=== PATIENT | male | born 1960 | race Caucasian/White ===

== ENCOUNTER 2024-08-27 07:59 | Inpatient (IN) ==
--- NOTE | 2024-07-18 13:31 | PAT Medication Instructions ---
Medication Instructions Date of Service July 18, 2024 Home Medications aspirin 81 mg capsule 81 mg PO DAILY atorvastatin 80 mg tablet 80 mg PO QAM multivitamin 1 tab PO QAM ASK your prescriber and surgeon aspirin 81 mg capsule 81 mg PO DAILY DO NOT take the morning of surgery multivitamin 1 tab PO QAM Take morning of surgery With a small sip of water, OTHERWISE NOTHING TO EAT OR DRINK AFTER MIDNIGHT: atorvastatin 80 mg tablet 80 mg PO QAM Other Notes If you have any questions please call us at [phone] or [phone] or [phone] or [phone]
--- NOTE | 2024-07-29 11:53 | Anesthesiology Consultation ---
Date of Service July 29, 2024 Assessment & Plan (1) Encounter for pre-operative examination: Chart Review Chart Review: Patient seen in Pre Admission Testing Teaching & Discussion Pre-Anesthesia Teaching/Discussion Notes: Instructed NPO after midnight before surgery, except medications with 15 cc of water. Medication instructions provided according to the PAT guidelines. History Surgery Operation Date: 08/15/24 12:55 Proposed Procedures p L4-L5 , L5-S1 Decompression and Fusion Spinal Cord Monitoring - Larry Jerez DO Height/Weight Height: 5 ft 11 in Weight: 96.162 kg Allergies Allergy/AdvReac Type Severity Reaction Status Date / Time No Known Allergies Allergy Verified 07/16/24 07:33 Medications Home Medications Medication Instructions Recorded Confirmed Last Taken aspirin 81 mg capsule 81 mg PO DAILY 07/16/24 07/16/24 Unknown atorvastatin 80 mg tablet 80 mg PO QAM 07/16/24 07/16/24 Unknown multivitamin 1 tab PO QAM 07/16/24 07/16/24 Unknown Past Medical History Medical History (Updated 07/29/24 @ 11:52 by Diya Baltazar PA-C) Dyslipidemia 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 Past Family History Family History Other No family history of adverse response to anesthesia Past Surgical History Surgical History History of ear surgery bilateral mastoid suregry - at 7 yrs ago History of open reduction and internal fixation (ORIF) procedure right leg History of removal of retained hardware History of surgery on wrist History of tooth extraction Hx of appendectomy Hx of cholecystectomy Hx of colonoscopy S/P epidural steroid injection lumbar area- pain mangement [place] (~03/2024) Social History Smoking Status: Former smoker Do You Dip or Chew Tobacco: No Smoking End Date: quit 2 weeks ago Hx Alcohol Use: No Hx Substance Use: No substance use type: does not use Review of Systems Patient denies chest pain, shortness of breath, dyspnea on exertion, snoring, witnessed apneas, reflux, fever, chills, cough, wheezing, or palpitations. Physical Exam Vital Signs Vitals BP P TEMP SP02 % on RA RESP Physical Patient resting comfortably in chair in no acute distress, alert and oriented, responding appropriately throughout visit Full cervical extension range of motion without pain TMD __ finger breadths Mallampati Score ___ Dentition: intact, denies chipped or loose teeth, caps/crowns, implants or bridges Lungs: normal respiratory effort. Good air movement, clear throughout to auscultation, no adventitious breath sounds Cardiac: regular rate and rhythm, no murmurs noted Carotid arteries: negative bruit bilat
--- NOTE | 2024-07-29 12:47 | Anesthesiology Consultation ---
Date of Service July 29, 2024 Assessment & Plan (1) Encounter for pre-operative examination: - Infectious disease screening: Per assessment on 07/29/24- No known recent infectious disease contacts or current infectious disease symptoms. - Cardiology visit (03/07/24): "Syncope X1 episode, possible prior CVA with chronic small vessel disease in the brain.. Normal CardioNet with only 5-second episodes of SVT that were asymptomatic.. Negative ischemic workup.. clinical ASCVD, possible prior CVA with chronic small vessel disease in the brain.. Recheck lipids due now.. Return in about 1 year" - Pending: * Awaiting surgeon-ordered PCP preop evaluation ([facility], appt week of 08/05). * Preop EKG: Preop EKG done 07/29/24 notes TWA, consider inferior ischemia. Have not been able to obtain comparison tracings at this point (received 08/2023 written EKG report). Note written to cardiology regarding preop EKG- Awaiting response ([facility] cardiology). Chart Review Chart Review: Patient seen in Pre Admission Testing Teaching & Discussion Pre-Anesthesia Teaching/Discussion Notes: Instructed NPO after midnight before surgery,except medications with 15 cc of water. Medication instructions provided according to the PAT guidelines. History Surgery Operation Date: 08/15/24 12:55 Proposed Procedures p L4-L5 , L5-S1 Decompression and Fusion Spinal Cord Monitoring - Larry Jerez, Height/Weight Height: 5 ft 11 in Weight: 96.162 kg Allergies Allergy/AdvReac Type Severity Reaction Status Date / Time No Known Allergies Allergy Verified 07/16/24 07:33 Medications Home Medications Medication Instructions Recorded Confirmed Last Taken aspirin 81 mg capsule 81 mg PO DAILY 07/16/24 07/16/24 Unknown atorvastatin 80 mg tablet 80 mg PO QAM 07/16/24 07/16/24 Unknown multivitamin 1 tab PO QAM 07/16/24 07/16/24 Unknown Past Medical History Medical History Dyslipidemia History of blood clot in brain After mastoid surgery (age 7), no issues since History of chronic hypertension History of CVA (cerebrovascular accident) Possible prior CVA with chronic small vessel disease 07/2023, no residual issues Lumbar back pain Exercise / Class Metabolic Activity II 4-5 Yardwork/Stairs/Walk up hill Past Family History Family History Other No family history of adverse response to anesthesia Past Surgical History Surgical History History of ear surgery Bilateral mastoid suregry (age 7) History of open reduction and internal fixation (ORIF) procedure RLE History of removal of retained hardware History of surgery on wrist History of tooth extraction Hx of appendectomy Hx of cholecystectomy Hx of colonoscopy S/P epidural steroid injection Lumbar area- pain mangement [place] (~03/2024) Past Anesthesia History No Hx of Anesthesia Complications and No Family Hx of Anesthesia Complications History of PONV No Hx of PONV Social History Smoking Status: Former smoker Do You Dip or Chew Tobacco: No Smoking End Date: Quit 06/2025 Hx Alcohol Use: No Hx Substance Use: No substance use type: does not use Review of Systems Patient denies chest pain, shortness of breath, dyspnea on exertion, fever, chills, cough, wheezing. Physical Exam Vital Signs BP 138/87 P 77 TEMP 97.5 SP02 96%RA RESP 16 Physical Full cervical extension range of motion. Full TMJ range of motion. TMD 3 finger breaths Mallampati Score III, macroglossia Dentition: upper full denture, edentulous Lungs: clear throughout to auscultation Cardiac: regular rate and rhythm, no murmurs noted Spine: normal Carotid arteries: negative bruit Extremities: no LE edema Lab Results Anesthesia Preop Results Results Anesthesia Widget: WBC 7.66 K/ul (4.8-10.8) 07/29/24 Hgb 14.6 g/dl (14.0-18.0) 07/29/24 Hct 42.8 % (42.0-52.0) 07/29/24 Plt 280 K/uL (130-400) 07/29/24 Na 140 mmol/L (136-145) 07/29/24 K 3.8 mmol/L (3.5-5.1) 07/29/24 Cl 107 mmol/L (98-107) 07/29/24 CO2 26 mmol/L (21-32) 07/29/24 BUN 17 mg/dl (6-23) 07/29/24 Creat 1.00 mg/dl (0.6-1.4) 07/29/24 Glucose Level 102 mg/dl (70-99(Fasting)) H 07/29/24 PT 11.1 Seconds (9.0-12.0) 07/29/24 PTT 26 Seconds (21-31) 07/29/24 INR 1.0 (0.9-1.1) 07/29/24 Urine Color Yellow 07/29/24 Urine Appearance Clear (Clear) 07/29/24 Urine pH 5.0 (4.5-7.5) 07/29/24 Urine Specific [place] 1.024 (1.000-1.030) 07/29/24 Urine Protein Negative (Negative) 07/29/24 Urine Glucose (UA) Negative (Negative) 07/29/24 Urine Ketones Trace (Negative) H 07/29/24 Urine Blood Negative (Negative) 07/29/24 Urine Nitrite Negative (Negative) 07/29/24 Urine Bilirubin Negative (Negative) 07/29/24 Urine Urobilinogen Negative (Negative) 07/29/24 Urine Leukocyte Esterase Negative (Negative) 07/29/24 Blood Type A Positive 07/29/24 Antibody Screen NEGATIVE 07/29/24 Testing Electrocardiogram Date: 07/29/24 NSR at 80bpm. TWA, consider inferior ischemia. Chest X-Ray Date: 07/29/24 Findings: + NAD Echocardiogram Date: 08/22/23 EF 60-65%. Grade 1 diastolic dysfunction. Trace MR/TR. Stress Test Date: 08/22/23 Negative ECG response. LVEF 54%. Low probability of CAD/ischemia. No significant ischemia or infarction. "There is an apparent perfusion defect of the inferior wall, consistent with diaphragmatic attenuation artifact. This is a normal regadenoson SPECT myocardial perfusion study indicating that the probability of hemodynamically significant underlying coronary artery disease being present is low" Stress test findings noted in 03/07/24 cardiology office visit note scanned into chart. Multiple attempts to obtain official report unsuccessful.
[~2024-08-27 07:59] MED LIST: ACETAMINOPHEN 500 MG TAB PO SCH; CeleBREX 200 MG CAP PO SCH; GABAPENTIN 600 MG DOSE PO SCH; LACTATED RINGER'S 1,000 ML IV SCH; LR 60ML/HR IV SCH; ceFAZolin 2000MG 2,000 MG/15 ML SYR IV SCH
[2024-08-27] MEDS ORDERED: ONDANSETRON INJ 2 MG/ML 2 ML VIAL ONE (08:24)
[2024-08-27] MEDS ORDERED: fentaNYL citrate PF 100 MCG/2 ML VIAL ONE (08:24)
[2024-08-27] MEDS ORDERED: ROCURONIUM BROMIDE 10 MG/ML 5 ML VIAL IV ONE (08:24)
[2024-08-27] MEDS ORDERED: GLYCOPYRROLATE 0.2 MG/ML VIAL ONE (08:24)
[2024-08-27] MEDS ORDERED: LIDOCAINE 2% 2 ML VIAL/AMP(20MG/ML) INFIL ONE (08:24)
[2024-08-27] MEDS ORDERED: PROPOFOL IV EMULSION 10 MG/ML 20 ML VIAL IV ONE (08:24)
[2024-08-27] MEDS ORDERED: MIDAZOLAM HCL 1 MG/ML 2ML VIAL ONE (08:24)
[2024-08-27] MEDS ORDERED: DEXAMETHASONE SOD INJ 4 MG/ML VIAL ONE (08:24)
[2024-08-27] MEDS ORDERED: SUGAMMADEX SODIUM 200 MG/2 ML VIAL IV ONE (09:00)
[2024-08-27] MEDS: LACTATED RINGER'S 1,000 ML IV SCH ×2 (09:10→17:45)
[2024-08-27] MEDS: LR 60ML/HR IV SCH (09:10)
[2024-08-27] MEDS: ACETAMINOPHEN 500 MG TAB PO SCH (09:12)
[2024-08-27] MEDS: GABAPENTIN 600 MG DOSE PO SCH (09:12)
[2024-08-27] MEDS: CeleBREX 200 MG CAP PO SCH (09:12)
[2024-08-27] MEDS ORDERED: ATROPINE SULFATE 0.1 MG/ML 10ML SYR IV PRN (09:21)
[2024-08-27] MEDS ORDERED: PROMETHAZINE HCL 6.25 MG in SODIUM CHLORIDE 0.9% 50 ML IV PRN (09:21)
[2024-08-27] MEDS ORDERED: LABETALOL HCL IV 5 MG/ML 20ML IV PRN (09:21)
[2024-08-27] MEDS ORDERED: ONDANSETRON INJ 2 MG/ML 2 ML VIAL IV PRN (09:21)
--- NOTE | 2024-08-27 09:43 | History & Physical Bridge Note ---
Date of Service August 27, 2024 History & Physical Bridge Note I have examined the patient, reviewed the History & Physical and in the interval since the performance of the History & Physical I have noted the following changes of clinical significance: no changes noted
--- NOTE | 2024-08-27 09:45 | History & Physical Report ---
Date of Service August 27, 2024 Assessment & Plan (1) Two-level lumbosacral spondylosis with radiculopathy: Plan: L4-L5 L5-S1 decompression and fusion History of Present Illness Chief Complaint: Back and bilateral leg pain Primary Care Provider: Kimberlyn Duke NP This is a 64-year-old male presents for chronic persistent back and leg pain the failing course of nonoperative care is here for surgical invention. Allergies Allergy/AdvReac Type Severity Reaction Status Date / Time No Known Allergies Allergy Verified 08/27/24 08:44 Home Medications Medication Instructions Recorded Confirmed Type aspirin 81 mg capsule 81 mg PO DAILY 07/16/24 08/27/24 History atorvastatin 80 mg tablet 80 mg PO QAM 07/16/24 08/27/24 History multivitamin 1 tab PO QAM 07/16/24 08/27/24 History Past Med/Surg History Problem List (Updated 08/27/24 @ 09:45 by Larry Jerez DO) Two-level lumbosacral spondylosis with radiculopathy Encounter for pre-operative examination Medical History Dyslipidemia History of blood clot in brain After mastoid surgery (age 7), no issues since History of chronic hypertension History of CVA (cerebrovascular accident) Possible prior CVA with chronic small vessel disease 07/2023, no residual issues Lumbar back pain Surgical History History of ear surgery Bilateral mastoid suregry (age 7) History of open reduction and internal fixation (ORIF) procedure RLE History of removal of retained hardware History of surgery on wrist History of tooth extraction Hx of appendectomy Hx of cholecystectomy Hx of colonoscopy S/P epidural steroid injection Lumbar area- pain mangement [place] (~03/2024) Family History Other No family history of adverse response to anesthesia Social History Smoking Status: Former smoker Tobacco Type: Cigarettes Smoking End Date: Quit 06/2025; Second Hand Exposure: No; Do You Dip or Chew Tobacco: No; Tobacco Cessation Education Requested by Patient: No Hx Alcohol Use: No Hx Substance Use: No Preferred Language: Malay Communication Ability: Effective Finnish Rubber Required: No Beliefs That Will Affect Care: None Current Living Situation: Spouse Other Information That Helps Us Care for You: No Feels Safe at Home: Yes Safety Concerns: Feels Safe At This Time Assistive Devices: Denture - Upper, Denture - Lower, Glasses and Hearing Aid - Bilateral Physical Exam Physical Exam: Patient is alert and oriented Heart regular rhythm Lungs clear Results & Data Results & Data Vital Signs (Past 12 Hours) Vital Signs Temp Pulse Resp BP Pulse Ox O2 Del Method 08/27/24 08:50 36.4 C L 89 18 154/88 H 97 Room Air
[2024-08-27] MEDS: ceFAZolin 2000MG 2,000 MG/15 ML SYR IV SCH ×2 (10:13→18:21)
[2024-08-27] MEDS: BUPIVACAINE/EPINEPHRINE 0.25% 1:200,000 30 ML VIAL ONE (11:03)
[2024-08-27] MEDS: ceFAZolin 330 MG/ML 1 GM VIAL ONE (11:03)
[2024-08-27] MEDS ORDERED: ePHEDrine sulfate 50 MG/5 ML SYR ONE (11:05)
[2024-08-27] MEDS ORDERED: PHENYLEPHRINE 100MCG/ML 5ML SYR ONE (11:05)
[2024-08-27] MEDS: FLOSEAL HEMOSTATIC MATRIX 10ML TOP ONE (12:08)
--- NOTE | 2024-08-27 12:13 | Operative Report ---
Post Operative Report Pre & Post Diagnosis Operation Date: 08/27/24 10:05 Pre-Op Diagnosis: #1 two-level Lumbosacral Spondylosis with Radiculopathy #2 lumbar discrimination with radiculopathy Post-Op Diagnosis: Same I identified the patient and participated in the time-out.: Yes Procedure Operation Date: 08/27/24 10:05 Actual Procedures #1 lumbar decompression with bilateral medial facetectomies and foraminotomies L3-L4, L4-5 and L5-S1. #2 posterior spinal fusion L4-S1. #3 placed posterior instrumentation L4-S1 using Story screws and rods. #4 interbody fusion L4-L5 L5-S1. #5 placement of Spira 12 x 26 mm x 2 at L4-5 and 10 x 26 mm x 2 at L5- S1. #6 placement locally harvested morselized autograft in the posterior lateral gutters. #7 placement infuse collagen sponge, with Koros in the posterior lateral gutters and os design and interbody space. #8 application of versa wrap of the exposed dura. Surgeon Larry Jerez, Dry End Tester Lian See Estimated Blood Loss 500 Findings Consistent with Post-Op Diagnosis Specimens None Indications This is a 64-year-old male presents with bumps diagnosis of failed course of nonoperative care is here for surgical invention. Description of Procedure Patient was met with identified informed consent obtained. Patient was then taken to the operative suite underwent intubation placed in a prone position on a Eric able [facility] frame. All bony prominences well-padded eyes inspected to ensure no external precipice upon the. This point lumbar spine is prepped and draped in normal sterile fashion. Sharp dissection with the assistance of Bovie cautery performed down to and exposing the lamina transverse processes of L4-5 and sacral ala bilaterally. From caudal to cephalad fashion complete laminectomy of L5 was performed including bilateral male facetectomies and foraminotomies addressing severe spinal stenosis. There is marked adhesions to the traversing nerve root secondary to disc herniation on the right at this level. same performed a complete laminectomy of L4 with bilateral medial facetectomies and foraminotomies addressing large disc herniation with adhesions on the left. This was followed by partial laminectomy of L3 with bilateral medial facetectomies to address subarticular stenosis. Pedicle screws were then placed in L4-L5 and S1 levels bilaterally with assistance of fluoroscopy in the process sandrine contoured and placed. By way of a transforaminal portion of right discectomy of L5-S1 was performed endplates guarded to subcortical the bone and a 10 x 26 mm spiral cage filled with os design bone graft apposition. Then proceeded to the left transforaminal region L5-S1. Again discectomy performed. Endplates guarded to subcortical white bone and the second 10 x 26 mm Spira cage filled with os designed tapped into position. The procedure L4-[address] transforaminal approach on the left a discectomy was performed endplates guarded distal cortical bleeding bone and a 12 x 26 mm Spira cage filled with os designed tapped in position. Then proceeded to the right transforaminal region at L4-5. Again discectomy performed. Endplates curetted to subcortical bleeding bone and a second 12 x 26 mm Spira cage filled with os design tapped in position. The rods were then locked in final position bilaterally. The transverse processes of L4-5 the sacral ala burred to subcortical bleeding bone. Infuse collagen sponge, with Koros and local autograft placed in the posterior lateral gutters. Versa wrap placed over the exposed dura. 15 round JERMAN drain inserted. The incision was then closed with 1 Vicryl fascia 2-0 Vicryl subcutaneously and 4 Monocryl for final skin closure. Steri-Strips sterile dressing placed. Patient waken taken PACU stable condition. Please note spinal cord monitoring was utilized at the procedure no changes noted. Lian See was present at the entire procedure and all the patient positioning complex portion of the surgery and final skin closure. I attest to the content of the Intraoperative Record and any orders documented therein. Any exceptions are noted below.
[2024-08-27] MEDS: HYDROmorphone INJ 1 MG/ML SYRINGE IV PRN ×2 (12:40→23:02)
--- NOTE | 2024-08-27 13:16 | Fluoroscopy Report ---
FL lumbar spine 2-3V CLINICAL HISTORY: L4-L5 L5-S1 DECOMPRESSION AND FUSION COMPARISON STUDY: None FLUOROSCOPY TIME: 23.1 seconds FLUOROSCOPY IMAGES: 2 EXPOSURE DOSE: 18.2 mGy FINDINGS: Posterior approach interbody sandrine and screw fusion with discectomy at L4-S1. Hardware appear s intact. No unexpected opaque foreign bodies. Multilevel spondylitic spurring. IMPRESSION: Fluoroscopic assistance as above. ACT 112: Negative or not required by law. Electronically signed by: Jayme Quinn M.D. 08/27/2024 1:15 PM
--- NOTE | 2024-08-27 13:31 | Anesthesiology Progress Note ---
Date of Service August 27, 2024 Anesthesia Post Procedure Vital Signs Vital Signs: Temp Pulse Pulse Resp BP Pulse Ox O2 Del Method 08/27/24 13:15 101 H 16 115/78 92 Nasal Cannula 08/27/24 13:05 36.5 C 98 H 12 128/90 93 Nasal Cannula 08/27/24 12:55 99 H 13 132/82 94 Oxymask 08/27/24 12:45 110 H 16 115/81 93 Oxymask 08/27/24 12:35 105 H 12 118/76 96 Oxymask 08/27/24 12:24 36.3 C L 100 H 16 100/78 97 Oxymask 08/27/24 08:50 36.4 C L 89 18 154/88 H 97 Room Air O2 Flow Rate 08/27/24 13:15 4 08/27/24 13:05 4 08/27/24 12:55 6 08/27/24 12:45 8 08/27/24 12:35 8 08/27/24 12:24 8 08/27/24 08:50 Pain Intensity Back: Pain Intensity: 7 Transfer of Care Handoff Completed per policy Notes Mental Status: alert / awake / arousable Patient Amnestic to Procedure: Yes Nausea / Vomiting: adequately controlled Pain: adequately controlled Airway Patency, RR, SpO2: stable & adequate BP & HR: stable & adequate Hydration State: stable & adequate Anesthetic Complications: no major complications apparent
[2024-08-27] MEDS ORDERED: DO NOT ADMINISTER FLU VACCINE PRN (13:56)
[2024-08-27] MEDS ORDERED: LORazepam 0.5 MG TAB PO PRN (13:56)
[2024-08-27] MEDS ORDERED: LORazepam 2 MG/1 ML VIAL IV PRN (13:56)
[2024-08-27] MEDS ORDERED: METOCLOPRAMIDE HCL INJ 5 MG/ML 2 ML VIAL IV PRN (13:56)
[2024-08-27] MEDS ORDERED: MAGNESIUM HYDROXIDE SUSP 30 ML UDC PO PRN (13:56)
[2024-08-27] MEDS ORDERED: ONDANSETRON 4 MG OD TAB PO PRN (13:56)
[2024-08-27] MEDS ORDERED: FAMOTIDINE 20 MG TAB PO PRN (13:56)
[2024-08-27] MEDS ORDERED: diphenhydrAMINE Capsule 25 MG CAP PO PRN (13:56)
[2024-08-27] MEDS ORDERED: hydrOXYzine HCl 25 MG TAB PO PRN (13:56)
[2024-08-27] MEDS ORDERED: SOD PHOSPHATE/SOD BIPHOSPHATE ENEMA 132 ML BTL PR PRN (13:56)
[2024-08-27] MEDS ORDERED: NALOXONE HCL 0.4 MG/1 ML VIAL/CARP IV PRN (13:56)
[2024-08-27] MEDS ORDERED: ALUMINUM/MAGNESIUM SUSP 30 ML UDC PO PRN (13:56)
[2024-08-27] MEDS ORDERED: bisacodyL 10 MG SUPP PR PRN (13:56)
[2024-08-27] MEDS ORDERED: PROMETHAZINE 12.5 MG/50.5 ML BAG IV PRN (13:56)
[2024-08-27] MEDS ORDERED: ACETAMINOPHEN 1,000 MG/100 ML VIAL IV PRN (13:56)
[2024-08-27] MEDS ORDERED: DO NOT ADMINISTER PNEUMOCOCCAL VACCINE PRN (13:56)
[2024-08-27] MEDS: HYDROmorphone INJ 0.5 MG/0.5 ML SYR IV PRN (14:26)
--- NOTE | 2024-08-27 15:05 | Consultation ---
Date of Consultation August 27, 2024 Assessment & Plan (1) S/P spinal surgery: (2) Two-level lumbosacral spondylosis with radiculopathy: This is a 64yo M with PMH of HLD who is POD#0 s/p lumbar decompression with bilateral medial facetectomies and foraminotomies L3-L4, L4-5 and L5-S1 and posterior spinal fusion L4-S by Dr. Jerez. POD#0 s/p lumbar decompression with bilateral medial facetectomies and foraminotomies L3-L4, L4-5 and L5-S1.#2 posterior spinal fusion L4-S1.#3 placed posterior instrumentation L4-S1 using Story screws and rods.#4 interbody fusion L4-L5 L5-S1 by Dr. Jerez Per ortho for pain control, wound care, anticoagulation and activities Monitor H&H (EBL 500ml, pre-op hgb 14.6), continue incentive spirometry, PT/OT when appropriate (3) History of CVA (cerebrovascular accident): Possible prior CVA with chronic small vessel disease 07/2023, no residual issues. Continue aspirin 81mg, statin (4) Dyslipidemia: Continue statin DVT Ppx: SCDs per primary service Code status: FULL PCP: REGINA Duke ([place]) Dispo: admitted to med/surg, discharge per primary service Patient seen in collaboration with Dr. Marte. Please see addendum. I spent a total of 60 minutes coordinating, documenting, and providing care for this patient excluding time spent in the performance of separately billed services or time spent by another provider/QHP. Thank you for this consultation. We will follow the patient with you during their hospital stay. You can [facility] a [facility] via [employer]. Supervising Physician Co-Signing Physician Notes Attending addendum: The patient was seen and examined in medical floor He is status post L4-S1 decompression and fusion Has been complaining of some back pain without any numbness and or tingling in the extremities He felt dizzy while trying to stand and move out of bed on a chair Denies any other significant symptoms On examination Lying in bed without any distress Hemodynamically stable with a blood pressure on the lower side at 108/72 and requiring 3 L to maintain saturation Chestclear to auscultate bilaterally HeartS1-S2, regular Abdomendistended with decreased bowel sounds Extremitiesno edema CNSalert, awake and oriented x 3 no focal sensory and motor deficit appreciated His labs, EKG and imaging studies reviewed Status post L4-S1 decompression and fusion and remains medically stable following the procedure His medical conditions as mentioned above and stable at this time Dizziness likely secondary to postural hypotension and was advised to drink more fluid he is getting cautious amount of intravenous fluid as well Agree with assessment plan as outlined above by Erica Tanner PA-C and take the full responsibility of care in the hospital Dr Peyton Marte History of Present Illness Reason for Consultation: post op med mgmt Attending Physician: Larry Jerez, DO History of Present Illness This is a 64yo M with PMH of HLD who is POD#0 s/p lumbar decompression with bilateral medial facetectomies and foraminotomies L3-L4, L4-5 and L5-S1 and posterior spinal fusion L4-S by Dr. Jeerz. Patient feeling well post- operatively. Asking for dinner. No pain or paresthesias in BLE. No surgical site pain presently. No F/C, lightheadedness, CP, SOB, N/V, abd pain, diarrhea or constipation. Receives primary care in [place]. Previously smoked 2-3 cigarettes but quit 2 months ago in anticipation of surgery. Allergies Allergy/AdvReac Type Severity Reaction Status Date / Time No Known Allergies Allergy Verified 08/27/24 08:44 Home Medications Medication Instructions Recorded Confirmed Type aspirin 81 mg capsule 81 mg PO DAILY 07/16/24 08/27/24 History atorvastatin 80 mg tablet 80 mg PO QAM 07/16/24 08/27/24 History multivitamin 1 tab PO QAM 07/16/24 08/27/24 History Patient History Medical History (Updated 08/27/24 @ 18:07 by Erica Tanner PA-C) History of CVA (cerebrovascular accident) Possible prior CVA with chronic small vessel disease 07/2023, no residual issues History of chronic hypertension History of blood clot in brain After mastoid surgery (age 7), no issues since Lumbar back pain Dyslipidemia Surgical History S/P epidural steroid injection Lumbar area- pain mangement [place] (~03/2024) History of tooth extraction History of surgery on wrist Hx of cholecystectomy Hx of appendectomy Hx of colonoscopy History of ear surgery Bilateral mastoid suregry (age 7) History of removal of retained hardware History of open reduction and internal fixation (ORIF) procedure RLE Family History Other Hypertension No family history of adverse response to anesthesia Social History Smoking Status: Former smoker Tobacco Type: Cigarettes Smoking End Date: Quit 06/2025; Second Hand Exposure: No; Do You Dip or Chew Tobacco: No; Tobacco Cessation Education Requested by Patient: No Hx Alcohol Use: No Hx Substance Use: No Preferred Language: Japanese Communication Ability: Effective [employer] Required: No Beliefs That Will Affect Care: None Current Living Situation: Spouse Other Information That Helps Us Care for You: No Feels Safe at Home: Yes Safety Concerns: Feels Safe At This Time Assistive Devices: Denture - Upper, Denture - Lower, Glasses and Hearing Aid - Bilateral Review of Systems Review of Systems: At least ten systems reviewed and negative except as noted in the HPI. Physical Exam Physical Exam: General Appearance: WD/WN, vitals as above, NAD, sitting up in bed, pleasant, conversing easily Head: normocephalic, atraumatic Eyes: normal inspection, PERRL ENT: external ear and nose normal, oropharynx normal Neck: normal visual inspection Respiratory: normal respiratory effort, lungs clear to auscultation Cardiovascular: regular rate, rhythm, normal peripheral pulses, no BLE edema Abdomen/GI: normal bowel sounds, soft, nontender, no hepatosplenomegaly Extremities/Musculoskeletal: no cyanosis or clubbing, extremities motor strength 5/5 Neurologic: PERRL, EOMI, CN's II-XI intact bilaterally and moves all extremities Psychiatric: A+Ox3, euthymic affect Skin: no rashes, normal color, warm/dry Results & Data Vital Signs (Past 12 Hours) Vital Signs Temp Pulse Pulse Resp BP Pulse Ox O2 Del Method 08/27/24 13:30 101 H 14 121/83 93 Nasal Cannula 08/27/24 13:15 101 H 16 115/78 92 Nasal Cannula 08/27/24 13:05 36.5 C 98 H 12 128/90 93 Nasal Cannula 08/27/24 12:55 99 H 13 132/82 94 Oxymask 08/27/24 12:45 110 H 16 115/81 93 Oxymask 08/27/24 12:35 105 H 12 118/76 96 Oxymask 08/27/24 12:24 36.3 C L 100 H 16 100/78 97 Oxymask 08/27/24 08:50 36.4 C L 89 18 154/88 H 97 Room Air O2 Flow Rate 08/27/24 13:30 3 08/27/24 13:15 4 08/27/24 13:05 4 08/27/24 12:55 6 08/27/24 12:45 8 08/27/24 12:35 8 08/27/24 12:24 8 08/27/24 08:50 Laboratory Results Pre-op hgb 14.6 in Jul 2024
[2024-08-27] MEDS: oxyCODONE HCL IR 5 MG TAB (IMMEDIATE RELEASE) PO PRN (15:31)
[2024-08-27] MEDS: ONDANSETRON INJ 2 MG/ML 2 ML VIAL IV PRN (16:53)
[2024-08-27] MEDS: DOCUSATE SODIUM/SENNA 50/8.6MG TAB PO SCH (20:13)
[2024-08-28] MEDS: POLYETHYLENE (MIRALAX) 17 GM PACK PO SCH (05:53)
[2024-08-28] MEDS: traMADol HCL 50 MG TABLET PO PRN (08:11)
[2024-08-28] MEDS: MULTIVITAMIN TAB PO SCH (08:13)
[2024-08-28] MEDS: ATORVASTATIN 40 MG TAB PO SCH (08:13)
[2024-08-28] MEDS: dexAMETHasone 6 MG in SYRINGE 0 ML IV SCH (08:15)
--- NOTE | 2024-08-28 08:20 | XRay Report ---
XR chest 1V portable CLINICAL HISTORY: hypoxia COMPARISON STUDY: 07/29/2024 FINDINGS: Heart size and pulmonary vasculature are normal. Inspiration is shallow. There is increased stranding opacity in the lung bases. No lobar consolidation, pleural effusion, or pneumothorax. IMPRESSION: Atelectasis versus early pneumonia in the lung bases. ACT 112: Negative or not required by law. Electronically signed by: Genaro Herrmann M.D. 08/28/2024 8:19 AM
[2024-08-28 08:36] LABS: Basophils # (auto) 0.02 K/uL (0.00-0.20); Basophils % (auto) 0.1 %; Hematocrit (blood only) 33.1 % (42.0-52.0); Hemoglobin 11.2 g/dl (14.0-18.0); Immature Granulocytes # (auto) 0.09 K/uL (0.01-0.20); Immature Granulocytes % (auto) 0.7 %; Mean Corpuscular Hgb Conc 33.8 g/dL (32.0-36.0); Mean Corpuscular Volume 88.7 fL (80.0-100.0); Mean Platelet Volume 8.9 fL (9.4-12.4); Monocytes # (auto) 1.05 K/uL (0.11-0.59); Monocytes % (auto) 7.7 %; Neutrophils % (auto) 80.5 %; Platelet Count 296 K/uL (130-400); RDW Coefficient of Variation 13.3 % (11.5-14.5); RDW Standard Deviation 43.5 fL (36.4-46.3); Red Blood Count 3.73 M/uL (4.70-6.10); White Blood Count 13.66 K/ul (4.8-10.8)
[2024-08-28 08:44] LABS: BUN Creatinine Ratio 24.2 (10-20); Calcium 8.9 mg/dl (8.6-10.3); Creatinine Clr Calc Pharmacy 72.7 ml/min; Potassium 4.1 mmol/L (3.5-5.1)
--- NOTE | 2024-08-28 09:06 | Hospitalist Progress Note ---
Date of Service August 28, 2024 Assessment & Plan (1) S/P spinal surgery: (2) Two-level lumbosacral spondylosis with radiculopathy: Plan: This is a 64yo M with PMH of HLD who is POD#0 s/p lumbar decompression with bilateral medial facetectomies and foraminotomies L3-L4, L4-5 and L5-S1 and posterior spinal fusion L4-S by Dr. Jerez. POD#0 s/p lumbar decompression with bilateral medial facetectomies and foraminotomies L3-L4, L4-5 and L5-S1.#2 posterior spinal fusion L4-S1.#3 placed posterior instrumentation L4-S1 using Story screws and rods.#4 interbody fusion L4-L5 L5-S1 by Dr. Jerez Per ortho for pain control, wound care, anticoagulation and activities Monitor H&H (EBL 500ml, pre-op hgb 14.6), continue incentive spirometry, PT/OT when appropriate 2/5 (+) hypoxia, tachycardia, borderline hypotensive CXR: no pneumonia, (+) atelectasis H CT chest angio: no PE, no pneumonia/pleural effusion IV fluids ordered encourage incentive spirometry monitor Hg (3) History of CVA (cerebrovascular accident): Plan: Possible prior CVA with chronic small vessel disease 07/2023, no residual issues Continue aspirin 81mg, statin (4) Dyslipidemia: Plan: Continue statin DVT Ppx: SCDs per primary service Code status: FULL PCP: REGINA Duke ([place]) Admission and Anticipated Discharge Date Admission Date: August 27, 2024 Subjective ff up for sp back surgery, etc seen resting in bed, not in distress on 3 L of o2 via nasal cannula states his breathing is ok denies chest pain, palpitations, dizziness, etc has some back pain no other symptoms Review of Systems Review of Systems: all noted and negative except for above Physical Exam Physical Exam: General- oriented x 3, not in distress, speaks in sentences with no effort or accessory muscle use Eyes- anicteric Neck- no JVD Lungs- clear breath sounds bilaterally, no rales/wheezes Heart- normal rate, regular rhythm; no murmurs Abdomen- normal bowel sounds, nondistended, soft, nontender Extremities- no pretibial edema, no calf tenderness Back- dressing in place: no bleeding Neuro- alert, oriented x 3; no gross focal neurologic deficits Skin- warm & dry Results & Data Results & Data Vital Signs (Past 12 Hours) Vital Signs Temp Pulse Resp BP BP Pulse Ox O2 Del Method 08/28/24 07:36 36.4 C L 98 H 18 100/63 94 Nasal Cannula 08/28/24 03:42 36.4 C L 105 H 18 98/67 L 95 Nasal Cannula 08/28/24 01:17 118/75 94 Nasal Cannula 08/27/24 23:28 36.2 C L 105 H 16 108/75 97/64 L 95 Nasal Cannula O2 Flow Rate 08/28/24 07:36 3 08/28/24 03:42 2 08/28/24 01:17 2 08/27/24 23:28 2 all noted and reviewed including below
[2024-08-28] MEDS: SODIUM CHLORIDE 0.9% 1,000 ML IV SCH (09:32)
[2024-08-28] MEDS: ASPIRIN 81 MG ECTAB PO SCH (09:36)
--- NOTE | 2024-08-28 12:18 | Orthopedic Progress Note ---
Date of Service August 28, 2024 Assessment & Plan (1) Two-level lumbosacral spondylosis with radiculopathy: Plan: Patient has been struggling with hypotension. We will continue to attempt bed to chair transfers and physical therapy as tolerated. Admission and Anticipated Discharge Date Admission Date: August 27, 2024 Subjective Patient's back pain is controlled leg pain improved Physical Exam Physical Exam: Patient currently in bed. Is comfortable. Good strength testing. Results & Data Vital Signs (Past 12 Hours) Vital Signs Temp Pulse Pulse Resp BP BP Pulse Ox 08/28/24 11:03 36.4 C L 108 H 18 118/80 94 08/28/24 10:30 36.4 C L 93 H 18 123/70 93 08/28/24 07:40 08/28/24 07:36 36.4 C L 98 H 18 100/63 94 08/28/24 03:42 36.4 C L 105 H 18 98/67 L 95 08/28/24 01:17 118/75 94 O2 Del Method O2 Flow Rate 08/28/24 11:03 Nasal Cannula 3.5 08/28/24 10:30 Nasal Cannula 2 08/28/24 07:40 Nasal Cannula 3.5 08/28/24 07:36 Nasal Cannula 3 08/28/24 03:42 Nasal Cannula 2 08/28/24 01:17 Nasal Cannula 2
[2024-08-28] MEDS: OPTIRAY 320 125ml IV ONE (15:54)
--- NOTE | 2024-08-28 17:10 | CT Scan Report ---
Clinical history: Rule out pulmonary embolism Technique: Axial computed tomography images were obtained of the chest after the administration of intravenous contrast according to the CT angiogram protocol Findings: There is no definite sign of pulmonary embolism. There is emphysema. There is bilateral lower lobe atelectasis. There is a 12 x 4 mm elongated nodular opacity along the right minor fissure. There is no pleural effusion or pneumothorax. There is no definite sign of pneumonia. No endobronchial lesion is seen There are mildly enlarged right hilar lymph nodes, measuring up to 1.3 cm in short axis. There are small subcentimeter mediastinal and axillary lymph nodes. The thoracic aorta appears unremarkable with no sign of aneurysm or dissection. There is no pericardial effusion The gallbladder has been removed. No fracture is seen. No focal osseous lesion is evident Impression: 1. No definite sign of pulmonary embolism 2. Emphysema 3. 1.2 cm nodular opacity along the right minor fissure, which could be due to focal scarring. Bronchogenic carcinoma is less likely but cannot be excluded. A follow-up chest CT could be obtained in 3 months or PET scan could be considered 4. Bilateral lower lobe atelectasis Electronically signed by Nelson Childs 08-28-2024 5:09 PM
--- NOTE | 2024-08-28 19:05 | XRay Report ---
EXAMINATION: X-ray lumbar spine 2-3 view CLINICAL HISTORY: Previous back surgery PRIORS: None TECHNIQUE: AP, lateral and coned L5-S1 view FINDINGS: Posterior fusion hardware present at L4-S5 with intervertebral disc spacers noted. Apparent safety pin is noted posterior to this. A drain is noted within the subcutaneous tissues on the frontal view. Alignment is near anatomic. No fracture or dislocation. Hardware appears intact. Kidneys are in excretory phase from CT performed earlier. Excreted contrast also identified in the urinary bladder. IMPRESSION: Postsurgical change of the lower lumbosacral spine with near anatomic alignment. Electronically signed by oSnia Weaver 08-28-2024 7:05 PM
[2024-08-29] MEDS: ACETAMINOPHEN 500 MG TAB PO PRN (06:17)
[2024-08-29 08:43] LABS: Basophils # (auto) 0.03 K/uL (0.00-0.20); Basophils % (auto) 0.2 %; Eosinophils # (auto) 0.04 K/uL (0.00-0.50); Eosinophils % (auto) 0.3 %; Hematocrit (blood only) 29.1 % (42.0-52.0); Hemoglobin 9.7 g/dl (14.0-18.0); Immature Granulocytes # (auto) 0.05 K/uL (0.01-0.20); Immature Granulocytes % (auto) 0.4 %; Lymphocytes # (auto) 2.42 K/uL (1.20-3.40); Lymphocytes % (auto) 20.1 %; Mean Corpuscular Hemoglobin 29.3 pg (25.0-34.0); Mean Corpuscular Hgb Conc 33.3 g/dL (32.0-36.0); Mean Corpuscular Volume 87.9 fL (80.0-100.0); Mean Platelet Volume 8.6 fL (9.4-12.4); Monocytes % (auto) 13.3 %; Neutrophils # (auto) 7.91 K/uL (1.40-6.50); Neutrophils % (auto) 65.7 %; Platelet Count 231 K/uL (130-400); RDW Coefficient of Variation 13.4 % (11.5-14.5); RDW Standard Deviation 43.3 fL (36.4-46.3); Red Blood Count 3.31 M/uL (4.70-6.10); White Blood Count 12.05 K/ul (4.8-10.8)
[2024-08-29 09:05] LABS: BUN Creatinine Ratio 25.9 (10-20); Calcium 8.1 mg/dl (8.6-10.3); Creatinine Clr Calc Pharmacy 111.2 ml/min
--- NOTE | 2024-08-29 10:24 | Orthopedic Progress Note ---
Date of Service August 29, 2024 Assessment & Plan (1) Two-level lumbosacral spondylosis with radiculopathy: Plan: At this time continue physical therapy monitor his JERMAN output anticipate discharge home tomorrow. Admission and Anticipated Discharge Date Admission Date: August 27, 2024 Subjective Patient's back pain is controlled. He is requiring less pain medication. He still notes some lightheadedness with ambulation. He states his leg pain is improved this morning with walking. Physical Exam Physical Exam: On exam is currently in bed. Is good strength testing. Appears comfortable. Results & Data Vital Signs (Past 12 Hours) Vital Signs Temp Pulse Resp BP Pulse Ox O2 Del Method O2 Flow Rate 08/29/24 07:50 36.4 C L 79 17 126/72 95 Nasal Cannula 2 08/29/24 07:45 Nasal Cannula 3 08/29/24 06:18 36.4 C L 85 16 128/78 94 Nasal Cannula 2
--- NOTE | 2024-08-29 16:47 | Hospitalist Progress Note ---
Date of Service August 29, 2024 Assessment & Plan (1) S/P spinal surgery: (2) Two-level lumbosacral spondylosis with radiculopathy: Plan: This is a 64yo M with PMH of HLD who is POD#0 s/p lumbar decompression with bilateral medial facetectomies and foraminotomies L3-L4, L4-5 and L5-S1 and posterior spinal fusion L4-S by Dr. Jerez. POD#0 s/p lumbar decompression with bilateral medial facetectomies and foraminotomies L3-L4, L4-5 and L5-S1.#2 posterior spinal fusion L4-S1.#3 placed posterior instrumentation L4-S1 using Story screws and rods.#4 interbody fusion L4-L5 L5-S1 by Dr. Jerez Per ortho for pain control, wound care, anticoagulation and activities Monitor H&H (EBL 500ml, pre-op hgb 14.6), continue incentive spirometry, PT/OT when appropriate 2/5 (+) hypoxia, tachycardia, borderline hypotensive CXR: no pneumonia, (+) atelectasis H CT chest angio: no PE, no pneumonia/pleural effusion IV fluids ordered encourage incentive spirometry monitor Hg 2/6 on 2 L nasal cannula continue to wean off o2 BP improving d/c iv fluids Acute Blood Loss anemia hg 11.2 --> 9.7 continue to monitor (3) History of CVA (cerebrovascular accident): Plan: Possible prior CVA with chronic small vessel disease 07/2023, no residual issues Continue aspirin 81mg, statin (4) Dyslipidemia: Plan: Continue statin DVT Ppx: SCDs per primary service Code status: FULL PCP: REGINA Duke ([place]) Admission and Anticipated Discharge Date Admission Date: August 27, 2024 Subjective ff up for s/p back surgery, etc seen resting in bed, comfortable states he feels fine overall on 2 L o2 denies shortness of breath, chest pain, palpitations ambulating in the halls, no dizziness, lightheadedness no other symptoms Review of Systems Review of Systems: all noted and negative except for above Physical Exam Physical Exam: General- oriented x 3, not in distress, speaks in sentences with no effort or accessory muscle use Eyes- anicteric Neck- no JVD Lungs- clear breath sounds bilaterally, no crackles/wheezing Heart- normal rate, regular rhythm; no murmurs Abdomen- normal bowel sounds, nondistended, soft, nontender Extremities- no pretibial edema, no calf tenderness Neuro- alert, oriented x 3; no gross focal neurologic deficits Skin- warm & dry Results & Data Results & Data Vital Signs (Past 12 Hours) Vital Signs Temp Pulse Resp BP Pulse Ox O2 Del Method O2 Flow Rate 08/29/24 15:38 36.7 C 82 16 131/82 93 Nasal Cannula 2 08/29/24 07:50 36.4 C L 79 17 126/72 95 Nasal Cannula 2 08/29/24 07:45 Nasal Cannula 3 08/29/24 06:18 36.4 C L 85 16 128/78 94 Nasal Cannula 2 all noted and reviewed including below
[2024-08-29 20:43] VITALS: RESP 18
[2024-08-30 07:28] LABS: Basophils # (auto) 0.02 K/uL (0.00-0.20); Basophils % (auto) 0.2 %; Eosinophils # (auto) 0.04 K/uL (0.00-0.50); Eosinophils % (auto) 0.3 %; Hematocrit (blood only) 29.7 % (42.0-52.0); Immature Granulocytes # (auto) 0.11 K/uL (0.01-0.20); Immature Granulocytes % (auto) 0.9 %; Lymphocytes # (auto) 2.76 K/uL (1.20-3.40); Lymphocytes % (auto) 21.9 %; Mean Corpuscular Hemoglobin 29.9 pg (25.0-34.0); Mean Corpuscular Hgb Conc 33.7 g/dL (32.0-36.0); Mean Corpuscular Volume 88.9 fL (80.0-100.0); Mean Platelet Volume 8.8 fL (9.4-12.4); Monocytes # (auto) 1.59 K/uL (0.11-0.59); Monocytes % (auto) 12.6 %; Neutrophils # (auto) 8.08 K/uL (1.40-6.50); Neutrophils % (auto) 64.1 %; Platelet Count 265 K/uL (130-400); RDW Coefficient of Variation 13.2 % (11.5-14.5); Red Blood Count 3.34 M/uL (4.70-6.10)
[2024-08-30 08:24] VITALS: O2SAT 96
--- NOTE | 2024-08-30 11:36 | Discharge Summary ---
Date of Service August 30, 2024 Admission HPI Per Admitting Provider This is a 64-year-old male presents for chronic persistent back and leg pain the failing course of nonoperative care is here for surgical invention. Principal Diagnosis Lumbar spondylosis with radiculopathy Discharge Data Allergies Allergy/AdvReac Type Severity Reaction Status Date / Time No Known Allergies Allergy Verified 08/27/24 08:44 Consultations 08/27/24 13:56 Consult Hospitalist Routine Procedures Performed Operation Date: 08/27/24 10:05 Actual Procedures p L4-S1 Decompression and Fusion, Spinal Cord Monitoring(Not Applicable) - Larry Jerez DO Ordered Studies 08/27/24 10:05 FL lumbar spine 2-3V Routine 08/28/24 14:04 CT angio chest PE protocol Stat Hospital Course (1) Two-level lumbosacral spondylosis with radiculopathy: Patient underwent multilevel lumbar decompression and fusion tolerated as well as taken to orthopedic for postoperative. Postop he progressed appropriately. Marked improvement of his leg pain. JERMAN drain decreasing. Excellent strength testing. Simply discharged home. Discharge orders instructions from the chart for further review. Total Time Total Time Spent Total Time Spent (In Minutes): 20 minutes Discharge Plan Discharge Items Patient Disposition: Home - Self-Care Reason For Visit: Lumbosacral Spondylosis with Radiculopathy, Neurof Discharge Diagnosis: Lumbar spondylosis with radiculopathy Activity: As commented below Non-emergency contact: Primary Care Provider Call non-emergency contact if: you have any medication questions Follow-up/Referrals: Kimberlyn Duke NP [Primary Care Provider] - (Please call your primary care physician and make an appointment for follow up.) Diet: Regular Addtl Attending Provider Instructions: ACTIVITY RECOMMENDATIONS: SELF CARE INSTRUCTIONS AFTER THORACIC/LUMBAR FUSIONS 1. You may walk to your tolerance. It is good exercise for your legs and back. Expect some back and intermittent leg aches and pains. 2. You may perform "counter-top" level activities (make a sandwich, john with a project, etc.). 3. No bending or lifting of more than 10 pounds or back twisting of any nature (roll like a log when turning in bed). 4. You may ride in a car for 20-30 minutes at a time. No driving until after your first visit with your doctor. 5. Frequent changes of position and restricting sitting to 30 minutes at a time will help limit the amount of back spasms and stiffness you may experience. 6. You may discontinue the use of ambulatory aids (cane, crutches, etc.) once your strength and confidence allow. 7. You may lock corner machine operator the shower and let water strike your incision when you arrive home at least once daily. Do not take a tub bath, sit in a hot tub or go into a swimming pool until after your first recheck in the office. 8. You may resume previous diet. SPECIAL CARE INSTRUCTIONS: VERY IMPORTANT TO READ AND REVIEW A. Your surgical incision has been closed with a cosmetic suture under the skin that will dissolve in about 6 weeks. In 14 days, you can use a pair of clean scissors and cut the suture that is left outside of the skin at the ends of your incision. 1. The small skin tapes can be removed 7 days after surgery if they have not fallen off by that point. 2. You may keep the wound open to air as much as possible to promote healing after post-op day number 5 unless told otherwise by your doctor. 3. If you think the wound looks like it is becoming infected (redness or worsening drainage) and/or you are experiencing fever, chill or worsening back pain and muscle spasms, contact the office so that we may evaluate you as soon as possible. B. Complications are uncommon, but please contact us if you have any signs or symptoms of: 1. wound infection (fever higher than 102.5 degrees F, redness, separation of wound, drainage, or increasing pain from the incision) 2. blood clots in legs (pain, swelling, redness and warmth in legs) 3. urinary tract infection (fever higher than 102.5 degrees F, burning upon urination or increased frequency of urination) 4. nerve problems (inability to walk on your toes or heels, numbness, loss of bowel or bladder control) 5. any other symptoms that concern you C. Please call the office at if you have any concerns or questions about your operation or recovery. D. No smoking! Smoking drastically decreases the chance of a solid fusion. E. Do not take any anti-inflammatory medications (Indocin, Advil, Motrin, Aspirin, Naprosyn, etc.) as these may inhibit the chance of a solid fusion. Tylenol is okay to take for pain. MANAGING PAIN AFTER SPINAL SURGERY 1. Narcotic medication is intended for short-term use and will be provided for surgical pain. Surgical pain usually lasts for a period of 4-6 weeks. Narcotic medication includes Percocet, Vicodin, Darvocet, Tylenol #3 or Lortab. 2. Longer-term pain is more appropriately treated with non-narcotic medication such as Tylenol ES. 3. Muscle spasm is not appropriately treated with narcotics. Muscle relaxers such as Soma, Flexeril or Skelaxin can be used along with Tylenol ES. 4. Remember that we all live with some "aches and pains". This is not unusual or uncommon after an injury or as we get older. a. Back pain is expected and may include muscle spasms for 4 to 6 weeks after surgery. The pain should gradually improve. If the pain worsens for no apparent reason, please contact the office. b. Intermittent leg pain may also be experienced and should not be concerned about unless it worsens for no apparent reason. If so, please contact the office. 5. We will provide appropriate medication within the normal guidelines of their prescribed use. We will also be very cautious and aware of potential abuse and extended duration of patients' medication needs. a. Pain medications are for your comfort and to assist with sleep and rest so that the tissue can heal. They are not provided in order to return to normal activity and should not be used through the day. To do so or worsening pain at night can result from ongoing tissue damage and dev elopment of tolerance to the prescribed medicine. 6. Please allow 2-3 days to process refills. Prescriptions will not be mailed but must be picked up at the office. FOLLOW UP VISIT: Keep your scheduled follow-up appointment. Any questions, please call the office at . Pending Studies at Discharge: No Stand-Alone Forms: My [employer], Smoking Cessation Medications and DC Order Prescriptions: New tramadol 50 mg tablet 50 mg PO Q6H PRN (Reason: pain, moderate) Qty: 30 0RF oxycodone 5 mg tablet 5 mg PO Q6H PRN (Reason: pain) Qty: 30 0RF Continued multivitamin Tablet 1 tab PO QAM atorvastatin 80 mg Tablet 80 mg PO QAM aspirin 81 mg Capsule 81 mg PO DAILY Discharge Orders: Discharge Order (Routine); Ordered 08/30/24 Ordered By: Larry Jerez Admission Data Admit Date/Time: 08/27/24 12:18 Attending Provider: Larry Jerez Admit Provider: Larry Jerez Primary Care Provider: Kimberlyn Duke Other Providers: Cherrie Marte; Julio Cesar Larios Other Interventions: Discharge Summary Assessment (RN) Last Done: 08/30/24 10:57
[2024-08-30 12:51] VITALS: BP 132/84; PULSE 77; TEMP 97.7
== END 2024-08-30 14:10 | disposition home or self-care (01) | DRG 427 ==
LOC: ASU 07:59 → 3E 12:18